=== PATIENT | female | born 1955 | race Caucasian/White ===

== ENCOUNTER 2018-08-08 11:23 | Emergency (ER) | payer OTHER ==
[~2018-08-08] VITALS: Ht 157.5 cm; Wt 52.2 kg
--- NOTE | 2018-08-08 11:37 | NUR ---
Dr Arias at the bedside for MSE.
--- NOTE | 2018-08-08 11:43 | NUR ---
URINE COLLECTED AND SENT TO LAB.
[2018-08-08] MEDS ORDERED: IV NORMAL SALINE 1000 ML BAG IV ONE (11:45)
[2018-08-08 11:56] LABS: *BILIRUBIN,URIN NEGATIVE (NEGATIVE); *BLOOD, URINE Trace-lysed (NEGATIVE); *CLARITY,URINE CLEAR (CLEAR); *COLOR,URINE LIGHT YELLOW (YELLOW); *KETONES,URINE NEGATIVE (NEGATIVE); *PROTEIN,URINE NEGATIVE (NEGATIVE); *UROBILINOGEN,URINE 0.2 E.U./dl (NORMAL); BASOPHILS % (AUTO) 0.3 % (0.0-2.0); EOSINOPHILS # (AUTO) 0.2 K/uL (0.0-0.7); EOSINOPHILS % (AUTO) 3.5 % (0.0-7.0); HEMATOCRIT 37.8 % (31.2-41.9); HEMOGLOBIN 12.7 g/dL (10.9-14.3); LEUKOCYTE ESTERASE ,URINE NEGATIVE (NEGATIVE); LYMPHOCYTES # (AUTO) 1.5 K/uL (20.0-40.0); LYMPHOCYTES % (AUTO) 27.5 % (20.5-51.5); MEAN CORPUSCULAR HEMOGLOBIN 30.9 uug (24.7-32.8); MEAN CORPUSCULAR HGB CONC 33 g/dL (32.3-35.6); MEAN CORPUSCULAR VOLUME 92.4 fL (75.5-95.3); MONOCYTES # (AUTO) 0.5 K/uL (2.0-10.0); MONOCYTES % (AUTO) 9.5 % (0.0-11.0); NEUTROPHILS # (AUTO) 3.2 K/uL (1.8-8.9); NEUTROPHILS % (AUTO) 59.2 % (38.5-71.5); NITRITE, URINE NEGATIVE (NEGATIVE); PLATELET COUNT (AUTO) 341 K/uL (179-408); UGLUCOSE NEGATIVE (NEGATIVE); WHITE BLOOD COUNT (AUTO) 5.3 K/uL (3.8-11.8)
[2018-08-08 12:01] LABS: CREATININE 0.8 mg/dL (0.6-1.3); POTASSIUM 4.3 mmol/L (3.5-5.1); RBC,URINE 0-3 /HPF (0-3); WBC,URINE 0-3 /HPF (0-3)
[2018-08-08 12:02] LABS: BACTERIA,URINE FEW /HPF (NONE SEEN); SQUAMOUS EPITHELIAL CELL,UR FEW /HPF (NONE SEEN)
--- NOTE | 2018-08-08 12:05 | NUR ---
Patient is resting comfortably in bed with eyes closed, NAD noted.
[2018-08-08 12:07] LABS: BILIRUBIN,DIRECT 0.1 mg/dL (0.0-0.2); BILIRUBIN,TOTAL 0.7 mg/dL (0.2-1.0); TOTAL PROTEIN, SERUM 7.6 g/dL (6.4-8.2)
--- NOTE | 2018-08-08 12:25 | NUR ---
Pt out of ER for CT.
--- NOTE | 2018-08-08 12:37 | NUR ---
Pt back from Ct, awaiting results.
--- NOTE | 2018-08-08 13:35 | NUR ---
IV removed. Catheter intact and site benign. Pressure and 4x4 gauze applied to site. No bleeding noted.
[2018-08-08 13:37] VITALS: BP 121/70
--- NOTE | 2018-08-08 13:38 | NUR ---
Patient discharged to home in stable conditon. Written and verbal after care instructions given. Patient verbalizes understanding of instructions.
[2018-08-11] MEDS ORDERED: ATOR20TA PO (15:14)
== END 2018-08-08 13:40 | disposition home or self-care (01) ==
LOC: ER 11:23
DX: M54.9 Dorsalgia, unspecified (principal); Z88.1 Allergy status to other antibiotic agents; Z88.5 Allergy status to narcotic agent; Z88.8 Allergy status to other drugs, medicaments and biological substances; Z91.048 Other nonmedicinal substance allergy status
CPT/HCPCS: 36415; 83690; 85025; A4663; J7030

== ENCOUNTER 2018-08-10 14:18 | Inpatient (IN) | payer OTHER ==
[~2018-08-10] VITALS: Ht 157.5 cm; Wt 51.0 kg
[2018-08-10 15:01] LABS: BASOPHILS % (AUTO) 0.4 % (0.0-2.0); EOSINOPHILS # (AUTO) 0.1 K/uL (0.0-0.7); HEMATOCRIT 38.7 % (31.2-41.9); HEMOGLOBIN 13.1 g/dL (10.9-14.3); LYMPHOCYTES # (AUTO) 1.3 K/uL (20.0-40.0); LYMPHOCYTES % (AUTO) 19.2 % (20.5-51.5); MEAN CORPUSCULAR HEMOGLOBIN 30.9 uug (24.7-32.8); MEAN CORPUSCULAR HGB CONC 34 g/dL (32.3-35.6); MONOCYTES # (AUTO) 0.5 K/uL (2.0-10.0); MONOCYTES % (AUTO) 7.9 % (0.0-11.0); NEUTROPHILS # (AUTO) 4.9 K/uL (1.8-8.9); NEUTROPHILS % (AUTO) 71.5 % (38.5-71.5); PLATELET COUNT (AUTO) 405 K/uL (179-408); RED BLOOD CELL COUNT(AUTO) 4.25 MIL/uL (3.63-4.92); WHITE BLOOD COUNT (AUTO) 6.8 K/uL (3.8-11.8)
[2018-08-10 15:22] LABS: CREATININE 0.7 mg/dL (0.6-1.3); POTASSIUM 4.2 mmol/L (3.5-5.1)
[2018-08-10] MEDS ORDERED: TETRACAINE HCL 0.5% OPHT DROP 2 ML BOTTLE ONE (15:24)
[2018-08-10 15:27] LABS: BILIRUBIN,DIRECT 0.2 mg/dL (0.0-0.2); BILIRUBIN,TOTAL 1.1 mg/dL (0.2-1.0); TOTAL PROTEIN, SERUM 8.1 g/dL (6.4-8.2)
[2018-08-10] MEDS ORDERED: MORPHINE SULFATE 4 MG/1 ML DISP.SYRIN IV ONE ×2 (15:45→17:15)
[2018-08-10] MEDS ORDERED: MORPHINE SULFATE 4 MG/1 ML DISP.SYRIN ONE ×3 (15:48→17:21)
[2018-08-10] MEDS ORDERED: IOHEXOL 300MG/ML 100 ML INFUS..BTL ONE (16:05)
[2018-08-10] MEDS ORDERED: NORMAL SALINE FLUSH 10 ML DISP.SYRIN ONE (16:06)
[2018-08-10] MEDS ORDERED: IV NORMAL SALINE 250 ML IV ONE (16:06)
[2018-08-10] MEDS ORDERED: SWABABLE VALVE TRANSFER SET EA MC ONE (16:06)
[2018-08-10] MEDS ORDERED: TRAM50TA2 PO (16:46)
[2018-08-10 17:47] LABS: *BILIRUBIN,URIN NEGATIVE (NEGATIVE); *BLOOD, URINE Trace-lysed (NEGATIVE); *CLARITY,URINE CLEAR (CLEAR); *COLOR,URINE YELLOW (YELLOW); *KETONES,URINE NEGATIVE (NEGATIVE); *PROTEIN,URINE NEGATIVE (NEGATIVE); *UROBILINOGEN,URINE 0.2 E.U./dl (NORMAL); LEUKOCYTE ESTERASE ,URINE NEGATIVE (NEGATIVE); NITRITE, URINE NEGATIVE (NEGATIVE); PH,URINE 7.5 (5.0-8.0); UGLUCOSE NEGATIVE (NEGATIVE)
[2018-08-10 18:03] VITALS: BP 156/71
[2018-08-10 18:15] LABS: BACTERIA,URINE MODERATE /HPF (NONE SEEN); RBC,URINE 0-3 /HPF (0-3); SQUAMOUS EPITHELIAL CELL,UR FEW /HPF (NONE SEEN); WBC,URINE 0-3 /HPF (0-3)
[2018-08-10] MEDS ORDERED: ACETAMINOPHEN 325 MG TABLET PO PRN (18:45)
[2018-08-10] MEDS ORDERED: MAGNESIUM HYDROXIDE 30 ML LIQUID UDC PO PRN (18:45)
[2018-08-10] MEDS ORDERED: ZOLPIDEM 5 MG TABLET PO PRN (18:45)
[2018-08-10 19:23] VITALS: BP 131/70
[2018-08-10] MEDS: ONDANSETRON 4 MG/2 ML VIAL IV PRN (20:11)
[2018-08-10 23:43] VITALS: BP 114/66
[2018-08-11] MEDS: TRAMADOL HCL 50 MG TABLET PO PRN ×3 (01:53→16:36)
[2018-08-11] MEDS: ONDANSETRON 4 MG/2 ML VIAL IV PRN ×3 (02:11→16:36)
[2018-08-11 03:29] VITALS: BP 114/69
[2018-08-11 06:30] LABS: BASOPHILS % (AUTO) 0.2 % (0.0-2.0); EOSINOPHILS # (AUTO) 0.1 K/uL (0.0-0.7); EOSINOPHILS % (AUTO) 1.1 % (0.0-7.0); HEMATOCRIT 38.9 % (31.2-41.9); HEMOGLOBIN 13.2 g/dL (10.9-14.3); LYMPHOCYTES # (AUTO) 1.3 K/uL (20.0-40.0); LYMPHOCYTES % (AUTO) 19.4 % (20.5-51.5); MEAN CORPUSCULAR HEMOGLOBIN 31.1 uug (24.7-32.8); MEAN CORPUSCULAR HGB CONC 34 g/dL (32.3-35.6); MEAN CORPUSCULAR VOLUME 91.4 fL (75.5-95.3); MONOCYTES # (AUTO) 0.6 K/uL (2.0-10.0); MONOCYTES % (AUTO) 9.4 % (0.0-11.0); NEUTROPHILS # (AUTO) 4.8 K/uL (1.8-8.9); NEUTROPHILS % (AUTO) 69.9 % (38.5-71.5); PLATELET COUNT (AUTO) 424 K/uL (179-408); RED BLOOD CELL COUNT(AUTO) 4.26 MIL/uL (3.63-4.92); WHITE BLOOD COUNT (AUTO) 6.8 K/uL (3.8-11.8)
[2018-08-11 06:49] LABS: THYROID STIMULATING HORMONE 0.385 mIU/mL (0.358-3.740)
[2018-08-11 06:50] LABS: CREATININE 0.8 mg/dL (0.6-1.3); MAGNESIUM 2.2 mg/dL (1.8-2.4); PHOSPHOROUS 4.2 mg/dL (2.5-4.9); POTASSIUM 4.6 mmol/L (3.5-5.1); TOTAL PROTEIN, SERUM 7.8 g/dL (6.4-8.2)
[2018-08-11] MEDS ORDERED: PANTOPRAZOLE SODIUM 40 MG TABLET.DR PO SCH (07:00)
[2018-08-11 11:31] VITALS: BP 109/66
[2018-08-11] MEDS ORDERED: ATOR20TA PO (15:14)
[2018-08-11 15:44] VITALS: BP 117/63
[2018-08-11 17:45] VITALS: BP 117/63
[2018-08-11] MEDS ORDERED: ATORVASTATIN 20 MG TABLET PO SCH (21:00)
[2018-08-14] MEDS ORDERED: TETRACAINE HCL 0.5% OPHT DROP 2 ML BOTTLE OP ONE (13:30)
== END 2018-08-11 17:30 | disposition home or self-care (01) | DRG 125 ==
LOC: ER 14:20 → TELE 17:42
PROVIDERS: ADMIT Internal Medicine; ATTEND Internal Medicine
DX: H33.22 Serous retinal detachment, left eye (principal); E87.1 Hypo-osmolality and hyponatremia; J11.1 Influenza due to unidentified influenza virus with other respiratory manifestations; E03.9 Hypothyroidism, unspecified; Z87.891 Personal history of nicotine dependence; Z80.7 Family history of other malignant neoplasms of lymphoid, hematopoietic and related tissues; Z80.3 Family history of malignant neoplasm of breast; Z79.899 Other long term (current) drug therapy; H54.7 Unspecified visual loss; E78.5 Hyperlipidemia, unspecified; G89.29 Other chronic pain; M54.9 Dorsalgia, unspecified
CPT/HCPCS: 36415; 70450; 70460; 71045; 83605; 83690; 83735; 84100; 84443; 85025; 85651; 87040; 87077; 87086; 93005; A4663; J2270; J2405; J3490; J7050; Q9967

== ENCOUNTER 2023-03-25 22:53 | Emergency (ER) | payer OTHER ==
[~2023-03-25] VITALS: Ht 157.5 cm; Wt 51.7 kg
[~2023-03-25 22:53] MED LIST: ATOR20TA PO; TRAM50TA2 PO
--- NOTE | 2023-03-25 23:11 | NUR ---
Dr Kelley at bedside MSE in progress
[2023-03-25] MEDS ORDERED: DOXY100C5 PO (23:23)
--- NOTE | 2023-03-26 | NUR ---
Patient discharged to home in stable condition. Written and verbal after care instructions given. Patient verbalizes understanding of instructions. Stressed follow up or return to ER for worsening s/s. Patient is a/ox4, NAD noted. Patient ambulated with steady gait, accompanied by her son
[2023-03-26 00:14] VITALS: BP 112/68
== END 2023-03-26 00:15 | disposition home or self-care (01) ==
LOC: ER 22:55
DX: S61.411A Laceration without foreign body of right hand, initial encounter (principal); S61.451A Open bite of right hand, initial encounter; E03.9 Hypothyroidism, unspecified; Z88.1 Allergy status to other antibiotic agents; Z88.5 Allergy status to narcotic agent; Z88.8 Allergy status to other drugs, medicaments and biological substances; Z79.2 Long term (current) use of antibiotics; Z79.899 Other long term (current) drug therapy; W54.0XXA Bitten by dog, initial encounter; Y93.89 Activity, other specified; Y92.89 Other specified places as the place of occurrence of the external cause; Y99.8 Other external cause status
CPT/HCPCS: A4663

== ENCOUNTER 2025-06-16 22:54 | Emergency (ER) | payer MEDICARE, BC ==
[~2025-06-16] VITALS: Ht 157.5 cm; Wt 50.8 kg
[~2025-06-16 22:54] MED LIST changes: +DOXY100C5 PO
[2025-06-16 23:13] VITALS: BP 123/62
[2025-06-16] MEDS ORDERED: SODIUM BICARBONATE 4.2 % (NEUT) 5 ML VIAL ONE (23:31)
[2025-06-16] MEDS ORDERED: HYDR-4209 PO ×2 (23:41→23:44)
[2025-06-16] MEDS ORDERED: ONDA4TAB11 PO (23:41)
[2025-06-16] MEDS ORDERED: CLIN300C12 PO (23:41)
[2025-06-16] MEDS ORDERED: ONDANSETRON ODT 4 MG TAB.RAPDIS ONE (23:59)
[2025-06-16] MEDS ORDERED: CLINDAMYCIN HCL 300 MG CAPSULE ONE (23:59)
[2025-06-16] MEDS ORDERED: HYDROCODONE/APAP 5-325MG TABLET ONE (23:59)
[2025-06-17] MEDS: CLINDAMYCIN HCL 150 MG CAPSULE PO ONE (00:05)
[2025-06-17] MEDS: ONDANSETRON ODT 4 MG TAB.RAPDIS SL ONE (00:06)
[2025-06-17] MEDS: LIDOCAINE HCL 2% 20 ML VIAL IJ ONE (00:06)
[2025-06-17] MEDS: HYDROCODONE/APAP 5-325MG TABLET PO ONE (00:06)
[2025-06-17] MEDS: SODIUM BICARBONATE 4.2 % (NEUT) 5 ML VIAL TP ONE (00:06)
[2025-06-17 00:27] VITALS: BP 119/66; O2SAT 100
== END 2025-06-17 00:28 | disposition home or self-care (01) ==
LOC: ER 23:15
DX: L60.0 Ingrowing nail (principal); E78.5 Hyperlipidemia, unspecified; Z88.0 Allergy status to penicillin; Z88.5 Allergy status to narcotic agent; Z88.8 Allergy status to other drugs, medicaments and biological substances; Z87.39 Personal history of other diseases of the musculoskeletal system and connective tissue
CPT/HCPCS: 99285; 11750; J3490; A4606; A4663; Q0162